=== PATIENT | male | born 1935 ===

== ENCOUNTER 2022-03-12 07:05 | Day surgery (SDC) | payer OTHER ==
[~2022-03-12] VITALS: Ht 160 cm; Wt 55.8 kg
[~2022-03-12 07:05] MED LIST: OBTREX DHA COM1 EACH PO
== END 2022-03-12 17:40 | disposition home or self-care (01) ==
LOC: CIR.AMB 07:05
PROVIDERS: ATTEND Specialist
DX: K40.90 Unilateral inguinal hernia, without obstruction or gangrene, not specified as recurrent (principal); D17.6 Benign lipomatous neoplasm of spermatic cord; Z20.822 Contact with and (suspected) exposure to COVID-19